=== PATIENT | female | born 1950 | race Caucasian/White ===

== ENCOUNTER 2023-10-27 11:59 | Day surgery (SDC) | payer MEDICARE, BC ==
[2023-10-22 13:42] VITALS: BMI 29.6
[~2023-10-27 11:59] MED LIST: SODIUM CHLORIDE 0.9% 1,000 ML IV SCH
[2023-10-27] MEDS: SODIUM CHLORIDE 0.9% 500 ML 500 ML IV ONE (12:13)
[2023-10-27] MEDS: CLINDAMYCIN 900 MG in DEXTROSE 5% IN WATER 50 ML IVPB PRN (13:18)
[2023-10-27] MEDS: LIDOCAINE 1% INJ 10MG/ML (20 ML MDV) SQ ONE (13:18)
[2023-10-27 13:29] VITALS: BP 149/70; PULSE 52; RESP 16; TEMP 98.2
--- NOTE | 2023-10-27 13:40 | P.EPPROC ---
- EP Procedure Note Electrophysiology Procedure Note: Loop monitor implant Primary physicians: Correctional Supervising Cook: Silvino Indication: PAF Patient was brought to the EP lab in a fasting state. Written informed consent was obtained prior to the procedure. The left pectoral area was prepped and draped per protocol. Intravenous antibiotic was administered preoperatively. A subcutaneous Loop monitor was implanted successfully and the wound was closed per protocol. The device was programmed to detect significant tiny- arrhythmic and tachy-arrhythmic events, per protocol. Device and programming details: PAF detection and management
== END 2023-10-27 15:07 | disposition home or self-care (01) ==
LOC: CATHEP 11:59
PROVIDERS: ATTEND Internal Medicine Clinical Cardiac Electrophysiology
DX: I48.0 Paroxysmal atrial fibrillation (principal); E11.9 Type 2 diabetes mellitus without complications; I10 Essential (primary) hypertension; F17.210 Nicotine dependence, cigarettes, uncomplicated; Z79.01 Long term (current) use of anticoagulants; Z88.0 Allergy status to penicillin; Z79.899 Other long term (current) drug therapy
CPT/HCPCS: 33285; C1764; J2001; J0736

== ENCOUNTER → 2024-01-01 | Outpatient (CLI) | payer MEDICARE, BC ==
[2024-01-01 15:35] LABS: ALT 31 U/L (8-44); AST 25 U/L (13-35); Albumin 4.5 g/dL (3.8-4.9); Albumin/Globulin Ratio 1.73 Ratio (1.60-3.17); Alkaline Phosphatase 67 U/L (41-126); Blood Urea Nitrogen 15.6 mg/dL (9.0-27.0); Calcium 9.5 mg/dL (8.7-10.3); Carbon Dioxide 20.3 mmol/L (21.6-31.8); Chloride 107 mmol/L (96-109); Chol/HDL Ratio 1.99 Ratio; Globulin 2.6 g/dL (1.6-3.3); Glucose 151 mg/dL (70-110); LDL Cholesterol,Calculated 29.2 mg/dL (0.0-131.0); Potassium 4.4 mmol/L (3.5-5.5); Sodium 139 mmol/L (135-145); Total Bilirubin 0.5 mg/dL (0.3-1.2); Total Protein 7.1 g/dL (6.2-8.2)
[2024-01-01 21:39] LABS: Microalbumin Creatinine Ratio <13 mg/g Cr (0-30); Urine Creatinine 93.2 mg/dL (28.0-217.0)
== END | disposition home or self-care (01) ==
LOC: LABWHC1 12:41
PROVIDERS: ATTEND Internal Medicine Endocrinology, Diabetes & Metabolism
DX: E11.65 Type 2 diabetes mellitus with hyperglycemia (principal)
CPT/HCPCS: 36415; 80053; 80061; 82043; 82570; 83036; 84443